=== PATIENT | female | born 1955 | race Caucasian/White ===

== ENCOUNTER → 2017-01-06 | Outpatient (CLI) | payer OTHER ==
[~2017-01-06] MED LIST: ALBUAER2 INH; ATEN50TA8 PO; ATOR-24 PO; BUPR-79 PO; CITA20TA9 PO; ENOX1INJ13 SQ; FLUT0.15 NAE; FRS/40 PO; GABA-113 PO; GLC/500 PO; GLIP-197 PO; LISI-729 PO; LORA-741 PO; METH4PAK4 PO; TIOTCAP INH; TRAM-10 PO; WARF5TAB90 PO; ZOLP5TAB PO; [UNRECOGNIZED DRUG - CODE] TOP
--- NOTE | 2017-01-07 06:17 | PAP/PSG TECHNICIAN REPORT ---
[facility] Broker Polysomnogram Report Study name: None Report date: 01/07/2017 Study date: 01/06/2017 Referring Physician: Key Smith Name: WANG PARK Interpreting Physician: Alex Sarah M.D. Date of : 1955 Broker: FEI Pelaez. Sex: Female Age: 61 StudyType: PSG Weight: 256 lbs 15.25 inches Height: 61 years, Height 5' 7" Neck Circum: BMI: 40.09 Medications: COUMADIN 5 MG, SPIRIVA RESPIMAT 1.25 MCG, LASIX 40 MG, CELEXA 20 MG, TENORMIN 50 MG, GLIPIZIDE XL 5 MG, LIPITOR 40 MG, GLUCOPHAGE 500 MG, VENTOLIN HFA 108 90 BASE, NEURONTIN 300 MG, PRINIVIL 5 MG, AMBIEN 5 MG, ATIVAN 0.5 MG, ULTRAM 50 MG, WELLBUTRIN XL 150 MG, FLONASE 50 MCG/ACT Patient History PATIENT HAS HISTORY OF INSOMNIA AND HYPERSOMNIA. ALSO HAS HISTORY OF LOUD SNORING, TAKING NAPS AND DAYTIME FATIGUE. SHE IS HERE FOR AN EVALUATION FOR ROSE MARIE. ESS = 10 RM 5 Parameters Monitored NPSG: E1-M2, E2-M1, Fp1-M2, Fp2-M1, F3-M2, F4-M2, F4-M1, C3-M2, C4-M2, C4-M1, O1-M2, O2-M2, O2-M1, T3-M2, T4-M1, P3-M2, P4-M1, CHIN1, CHIN2, HR, EKG, Legs, PFLOW, SNOR, FLOW, CFLOW, Tidal Volume, THOR, ABDO, SpO2, PLTH, CPRESS, ETCO2 Wave, ETCO2, pH Sleep Architecture Sleep Stages Time at Lights Off 10:45:42 PM STAGES Time (min.) TST (%) Time at Lights On 5:52:12 AM Wake 59.0 -- Total Recording Time (TRT) 427.00 min. N1 22.0 6 Total Sleep Period (TSP) 408.5 min. N2 300.0 82 Total Sleep Time (TST) 367.5min. N3 10.5 3 Awake Time 59.0 min. REM 35.0 10 Wake after Sleep Onset 41.0 min. Sleep Efficiency (SE) 86 % Sleep Onset Latency (CONNIE) 18.0 min. Number of Stage 1 Shifts None Awakenings 19 Stage Changes 77 Number of REM periods 2 REM 35.0 10 REM Latency 370.5 min. NREM 332.5 90 Body Position Analysis Supine Right Left Side Prone Vertical Total Sleep Time (min.) 253.9 75.9 55.7 131.64 0.0 0.0 Total Sleep Time (%) 64% 21% 15% 36 0% N/A% Total Sleep Time REM (min.) 35.0 0.0 0.0 None 0.0 0.0 Total Sleep Time NREM (min.) 200.9 75.9 55.7 None 0.0 0.0 Intermittent Wake (min.) 18.0 23.9 17.1 None 0.0 0.0 Total Sleep Period (%) 62% None None None None None Arousals Myoclonus (PLM) * Events Count Index Events Count Index Spontaneous 37 6 Events Awake (PLMW) 54 54.9 Respiratory 26 4.6 Events Asleep w/ Arousal (PLMA) 10 1.6 PLM 9 2 Events Asleep w/o Arousal (PLMS) 233 38.0 Snoring 23 4 Total Asleep 243 39.7 Total 95 16 Total 297 42 Respiratory Analysis * CA OA MA CH H RERA Total Count 1 4 0 0 205 0 210 Index 0.2 0.7 0.0 0 33.5 0 34.3 Mean Duration 23.4 23.0 0.0 0.00 20.5 0.0 20.6 Longest Duration 23.4 29.5 0.0 0.00 0.0 0.0 53.4 Respiratory Event Summary Total Supine ~Supine Right Left Prone REM NREM Apneas Count 5 5 0 0 0 N/A 0 5 Index 0.8 1 0 0.0 0.0 N/A 0 1 Hypopneas (4% Desat) Count 205 155 50 25 25 N/A 33 172 Index 33.5 39.4 23 19.8 26.9 N/A 56.6 31.0 Apneas & All Hypopneas Count 210 160 50 25 25 N/A 33 177 Index 34.3 41 23 20 27 N/A 56.6 31.9 Respiratory Events (Byproducts Extractor+All Hyp+RERA) Count 210 160 50 25 25 N/A 33 177 Index 34.3 41 23 19.8 26.9 N/A 56.6 31.9 Respiratory Related Arousal Count 26 160 8 3 5 N/A 1 27 Index 4.6 5 4 2 5 N/A 2 5 Snoring Analysis Supine Right Left Prone REM NREM Total Snore duration 62.4 min Snores count 1,234 541 751 N/A 288 2,238 2,526 Snore mean duration 1.5 Sec Snores index 314 428 809 N/A 493.7 403.8 412.4 TST with snoring (%) 17.0% Desaturation Event Summary: Minimum %SpO2 Event Count Mean/Min/Max Duration(sec.) Desaturation Index % Time In Bed > 90 168 26.8 / 6.0 / 60.0 84.2 28.5 86 - 90 113 24.4 / 9.3 / 51.6 26.8 60.2 81 - 85 9 19.2 / 9.0 / 42.3 11.6 11.1 76 - 80 0 N/A 0.0 0.2 71 - 75 0 N/A 0.0 0.0 66 - 70 0 N/A 0.0 0.0 61 - 65 0 N/A 0.0 0.0 56 - 60 0 N/A 0.0 0.0 51 - 55 0 N/A 0.0 0.0 < 50 0 N/A 0.0 0.0 Total REM NREM Awake <50% 0.0 min. 0.0 min. 0.0 min. 0.0 min. 51 - 60% 0.0 min. 0.0 min. 0.0 min. 0.0 min. 61 - 70% 0.0 min. 0.0 min. 0.0 min. 0.0 min. 71 - 80% 0.7 min. 0.7 min. 0.0 min. 0.0 min. 81 - 90% 299.1 min. 32.9 min. 248.4 min. 17.8 min. 91 - 100% 119.8 min. 1.4 min. 83.7 min. 34.6 min. Average 89 86 89 91 Minimum SpO2 77 77 83 83 Desaturation Event Index 32.6 61.7 32.7 15.3 # Desat. Events below 89% 179 36 138 5 Time(%) with Saturation below 89% 44.4 7.1 36.6 0.8 Time(min.) with Saturation below 89% 186.3 29.6 153.4 3.3 Time (mins) REM (mins) NREM (mins) % of TST SpO2 Below 90% 211 36 N175 65.0 SpO2 Below 88% 75 0 0 35 Heart Rate Analysis Min (bpm) Max (bpm) Average (bpm) Awake 62 76 70 NREM 61 196 67 REM 62 70 65 Overall 61 196 67 Supplemental O2 Values Minimum O2 level: None Value Start Time End Time Broker Comments Ms. Park slept in the right, left and supine positions. No cardiac arrhythmia noted. Leg movements noted. No bruxism noted. Snoring was noted and scored as a 4 on a scale of 1 through 5. (0=no snoring, 5=snoring loud enough to be heard through a closed door or down the souza way) Ms. Park awoke to use the restroom 1 time during the night. Ms. Park stated I did not sleep as well as I do when I am in my own bed. The final report will be interpreted and signed by a sleep physician. The completed physician report will then be placed in the patient medical record. Therapy (cm H2O) 0 TIB (min.) 426.5 TST (min.) 367.5 Sleep Onset (min.) 18.0 REM Onset From Sleep (min.) 370.5 Sleep Efficiency % 86 Wakefulness (%) 14 Wakefulness (min.) 59.0 NREM 1 (%) 6 NREM 1 (min.) 22.0 NREM 2 (%) 82 NREM 2 (min.) 300.0 NREM 3 (%) 3 NREM 3 (min.) 10.5 REM (%) 10 REM (min.) 35.0 # Arousals 95 Arousal Index 16 # Snore 2,526 Snore Index 412.4 AHI 34.3 AHI Supine 41 AHI Non-Supine 23 NREM AHI 31.9 REM AHI 56.6 RDI 34.3 # Obstructive Apnea 4 # Central Apnea 1 # Mixed Apnea 0 # Hypopneas 205 RERAs 0 Total Respiratory Events 210 Time Below SpO2 89% (min.) 183.0 Mean NREM SpO2 (%) 89 Mean REM SpO2 (%) 86 Mean Sleep SpO2 (%) 89 Min NREM SpO2 (%) 83 Min REM SpO2 (%) 77 Position Supine (min.) 253.9 Position Non-supine (min.) 131.6 LM Index Sleep 39.7 LM Index NREM 39.9 LM Index REM 37.7 Mean Heart Rate (bpm) 67 Min Heart Rate (bpm) 61
--- NOTE | 2017-01-08 16:31 | POLYSOMNOGRAPH REPORT ---
CLINICAL DATA: 61-year-old female with BMI of 40 referred by PAMELA Ward for a history of hypersomnia and insomnia with mild snoring, daytime fatigue and napping. Her Hutchinson sleepiness score is 10/24. SLEEP ARCHITECTURE: Total sleep period was 408.5 minutes. Total sleep time was 367.5 minutes divided between 332.5 minutes of non-REM sleep and 35 minutes of REM sleep. Sleep onset latency was 18 minutes. REM latency was 370.5 minutes. Sleep efficiency was 86%. Wake after sleep onset was 41 minutes. Sleep consisted of stage N1 6%, N2 82%, N3 3%, and REM 10%. AROUSAL DATA: 95 arousals recorded for an index of 16 per hour. PLM DATA: Moderately elevated limb movements during sleep were noted. There were 243 limb movements during sleep noted for an index of 39.7 per hour with arousal index of 1.6 per hour. RESPIRATORY DATA: Severe sleep apnea was documented. The AHI was 34.3. There was 1 central and 4 obstructive apneic episodes. The longest duration of apnea was 29.5 seconds. There were 205 hypopneic episodes with a mean duration of 20.5 seconds. OXIMETRY DATA: Nocturnal hypoxemia was seen. Oxygen gemma of 77% during REM. The mean saturation was 89%. Time below 88% was 75 minutes. EKG: Heart rates ranged from 61-70 beats per minute. No arrhythmias were noted. ENGINE EMISSION TECHNICIAN'S COMMENTS: The patient slept in the right, left, and supine positions. Snoring was severe, rated 4 on a scale of 1 through 5. She did not meet split night criteria early enough in the study to warrant a split night study. IMPRESSION: Severe sleep apnea/hypopnea with a diagnostic AHI of 34.3 with nocturnal hypoxemia. RECOMMENDATIONS: The patient would benefit from a repeat sleep study with CPAP or use of auto CPAP. DREW
== END | disposition home or self-care (01) ==
LOC: C.NEUR 21:00
PROVIDERS: ATTEND Nurse Practitioner Family
DX: G47.10 Hypersomnia, unspecified (principal); R06.83 Snoring; E66.01 Morbid (severe) obesity due to excess calories; G47.00 Insomnia, unspecified

== ENCOUNTER 2017-06-17 22:43 | Emergency (ER) | payer OTHER ==
[~2017-06-17] VITALS: Ht 167.6 cm; Wt 119.2 kg
[2017-06-17 22:46] VITALS: TEMP 36.8; Ht 167.6 cm; Wt 119.2 kg
[2017-06-17] MEDS ORDERED: PROPARACAINE HCL 0.5% OP SOLN 15 ML BTL OP STA (22:58)
[2017-06-17] MEDS ORDERED: HYDR-5688 PO (23:37)
[2017-06-17] MEDS ORDERED: CHN/1 PO (23:37)
[2017-06-17] MEDS ORDERED: RIVA1TAB4 PO (23:37)
[2017-06-17] MEDS ORDERED: BUPRTAB51 PO (23:37)
[2017-06-17] MEDS ORDERED: SPRIN/30 INH (23:37)
[2017-06-17] MEDS ORDERED: BUPR-79 PO (23:37)
[2017-06-17] MEDS ORDERED: LSN25 PO (23:37)
[2017-06-17] MEDS ORDERED: VNTHFA/IN INH (23:37)
[2017-06-17] MEDS ORDERED: FLV1 PO (23:37)
[2017-06-17] MEDS ORDERED: DOXYCYCLINE HYCLATE 100 MG CAP PO STA (23:53)
[2017-06-17] MEDS ORDERED: CEPHALEXIN 500MG HOME PACK 1 EA BTL PO STA (23:53)
[2017-06-18] MEDS ORDERED: CEPH500C PO (00:07)
[2017-06-18] MEDS ORDERED: DOXY-300 PO (00:07)
--- NOTE | 2017-06-18 00:08 | EMERGENCY ROOM VISIT NOTE ---
History First contact with patient: 22:50 Chief Complaint: EYE ASSESSMENT Stated Complaint: RT EYE SWELLING History of Present Illness The patient is a 61 year old female who presents to the Emergency Room via private vehicle with complaints of "right eye swelling". The patient states that 3 days ago she began with a small red bump on the upper right eyelid. This has now progressed in size. She was seen at another facility and given ciprofloxacin eyedrops to be used 4 times daily. She has been complying with this. She states that now the swelling has worsened and there is more redness throughout the entire upper eyelid and beginning on the lower eyelid. She denies any pain. She denies any pain with eye movements. She also has associated cold symptoms which she has had for the past few days to include chills, headache, and phlegm in her throat. Of additional note she states that the right eye lid redness began with a scratchy sensation in the eye as well. She only notes minimal discharge from the eye. Review of Systems A complete 6-point Review of Systems was discussed with the patient, with pertinent positives and negatives listed in the History of Present Illness. All remaining Review of Systems questions can be considered negative unless otherwise specified. Past Medical/Surgical History Medical Problems: (1) Diabetes (2) Hypertension (3) Pneumonia Surgical Problems: (1) S/P cholecystectomy Family History Diabetes mellitus Gallbladder disease Heart disease Hypertension Social History Smoking Status: Former Smoker Marital Status: single Housing Status: unknown Occupation Status: employed Current/Historical Medications Scheduled Atenolol (Tenormin), 50 MG PO DAILY Atorvastatin (Lipitor), 40 MG PO DAILY Bupropion (Wellbutrin Sr), 150 MG PO DAILY Bupropion (Wellbutrin Sr), 150 MG PO DAILY Bupropion (Wellbutrin-Xl), 300 MG PO DAILY Cephalexin Monohydrate (Keflex), 500 MG PO BID Citalopram Hydrobromide (Celexa), 20 MG PO DAILY Doxycycline (Monohydrate) (Doxycycline), 100 MG PO BID Folic Acid (Folic Acid), 1 MG PO DAILY Furosemide (Lasix), 40 MG PO DAILY Gabapentin (Neurontin), 300 MG PO TID Glipizide (Glipizide Er), 1 TAB PO DAILY Lisinopril (Lisinopril), 2.5 MG PO DAILY Metformin Hcl (Glucophage), 500 MG PO BID Rivaroxaban (Xarelto), 20 MG PO DAILY Scheduled PRN Albuterol Hfa (Ventolin Hfa), 2 PUFFS INH QID PRN for Shortness of Breath Clobetasol Propionate [place]li[place] (Clobetasol Propionate E), 1 APPLN TOP BID PRN for Fluticasone Propionate (Nasal) (Flonase Allergy Relief), 2 SPRAYS FAROOQ DAILY PRN for CONGESTION Hydrocodone/Acetaminophen 5MG/325MG ([place] 5MG/325MG), 1 TABLET PO Q8 PRN for Pain Lorazepam (Ativan), 0.5 MG PO BID PRN for Anxiety Tiotropium [place] (Spiriva Handihaler), 1 CAP INH DAILY PRN for Shortness of Breath Varenicline (Chantix), 1 MG PO DIRECTED PRN for SMOKING CESSATION Zolpidem Tartrate (Ambien), 5 MG PO HS PRN for Sleep Physical Exam Vital Signs Date Time Temp Pulse Resp B/P (MAP) Pulse Ox O2 Delivery O2 Flow Rate FiO2 06/18/17 00:25 78 16 126/84 94 06/17/17 22:46 36.8 95 18 200/92 94 Room Air Right Eye Acuity: 20/40 Left Eye Acuity: 20/20 Physical Exam VITAL SIGNS - Vital signs and nursing notes were reviewed. Afebrile. Hypertensive. This improved. GENERAL -61-year-old female appearing her stated age who is in no acute distress. Communicates well with provider and answers questions appropriately. SKIN -the entire right upper eyelid is erythematous, with slight edema. Only minimal discharge from the conjunctiva noted. Minimal erythema just below the right eyelid. HEAD - NC/AT. EYES - PERRL with EOMI bilaterally. Sclera anicteric. No pain with EOMs. Please refer to slit-lamp exam below. EARS - No deformities of external structures noted on gross examination bilaterally. NOSE - Midline and without cyanosis. No epistaxis or purulent drainage noted. MOUTH/OROPHARYNX - Without perioral cyanosis. Buccal mucosa pink and moist and without leukoplakia. Tongue midline with equal elevation of palate bilaterally. No tonsillar hypertrophy, erythema, or exudates noted. [] dentition noted. NECK - Neck with FROM. Supple to palpation. No lymphadenopathy noted. No nuchal rigidity. Slit Lamp Examination was performed of the right eye(s). Alcaine drops were applied to the affected eye(s) for proper anesthetization. The affected eye(s) were stained with Fluorescein stain to precipitate adequate visualization of any conjunctival/scleral excoriations or ulcers. The patient's face was comfortably rested on the chin guard of the slit lamp apparatus. The lights were dimmed and the affected eye(s) were thoroughly examined under microscopy using the blue light. No uptake was present in the eye. Additionally, the eye(s ) were examined under microscopy using the regular light. Close examination revealed no right eye abnormalities other than that of edema and erythema of the upper eyelid. Patient tolerated the procedure well and no complications were met. Medical Decision & Procedures Medications Administered Medications (Trade) Dose Ordered Sig/Yoana Route Start Time Stop Time Status Last Admin Dose Admin Cephalexin Monohydrate (Keflex 500MG Home Pack) 1 homepack NOW STAT PO 06/17/17 23:53 06/17/17 23:58 DC 06/18/17 00:25 1 HOMEPACK Doxycycline Hyclate (Vibramycin Cap) 100 mg ONE STAT PO 06/17/17 23:53 06/17/17 23:58 DC 06/18/17 00:25 100 MG Medical Decision Patient was seen and evaluated as above in room B10. Review was performed of nursing notes and vital signs. After obtaining a thorough history and physical examination it was evident she was likely experiencing worsening of a stye/ hordeolum. This is slightly palpable on exam however now the entire right upper eyelid and is now progressing below this. This clinically could be early periorbital cellulitis. I did discuss this with the attending physician and the decision was made to allow the patient to continue the eyedrops, but also initiate Keflex and Bactrim. Because of her underlying other medications I will change Bactrim to doxycycline so that way Keflex and doxycycline to cover any potential early cellulitis. Although cellulitis is less likely, and a stye is favored or even allergies given her past medical history believe that treating for potential infectious cause is warranted. She was found to be hypertensive upon initial examination, however this normalized. She is to call ophthalmology to schedule follow-up tomorrow. The patient was educated upon management, had questions answered prior to discharge, and was discharged home in good condition. Case was discussed with the attending physician. In the evaluation and treatment of this patient, the following differential diagnoses were considered: Corneal Abrasion, Conjunctivitis, Eye Contusion, Globe Injury, Orbital Floor Injury (Blowout Fracture), Corneal Ulcer, Keratitis , Herpes Zoster Opthalmic, Blepharitis, Orbital Cellulitis, Iritis, Scleritis/ Episcleritis, Uveitis, Temporal Arteritis, Subconjunctival Hemorrhage. Impression Primary Impression: Stye Departure Information Dispostion Home / Self-Care Condition GOOD Prescriptions Doxycycline (Monohydrate) (Doxycycline) 100 Mg Cap 100 MG PO BID for 9 Days, #18 TABS Prov: Tristen Alvarez PA-C 06/18/17 Cephalexin Monohydrate (Keflex) 500 Mg Cap 500 MG PO BID for 8 Days, #16 CAP Prov: Tristen Alvarez PA-C 06/18/17 Referrals Deepthi Mcgregor M.D. (PCP) Jas Celaya M.D. Patient Instructions [facility] Additional Instructions You have been treated in the Emergency Department for left eye swelling. I suspect this is likely a stye however a small developing cellulitis is possible and for that reason we will start you on doxycycline and Keflex. Keflex 1 tablet every 12 hours. Doxycycline 1 tablet every 12 hours. You have been prescribed Doxycycline to be taken as prescribed. This is an antibiotic. All antibiotics have the potential to cause diarrhea. Stop this medication and contact a medical provider if you were to develop any significant adverse side effects including: wheezing, shortness of breath, passing out, vomiting, or a diffuse rash. Always take antibiotics as directed and COMPLETE the ENTIRE course regardless of the improvement of your symptoms. Protect yourself with sunscreen while on this antibiotic as it increases your skin's sensitivity to the light and cause bad sunburns. In addition, you should be sure to take this pill after eating. Make sure the pill is completely swallowed as this medication can cause irritation to the lining of the esophagus. Do NOT drink milk or eat anything with large amounts of Calcium in them 1 hour prior to taking this medication as this will decrease the effectiveness of the medication. Please continue the eyedrops. Please call Dr. Celaya's office first thing tomorrow morning to schedule follow- up. Please state that you were in the emergency department and we request you be seen that same day. Return to the emergency department if you develop the following symptoms despite treatment course outlined above: blurry vision, loss of vision, fever, intractable pain, increased redness, swelling, or purulent discharge.
[2017-06-18 00:25] VITALS: BP 126/84; PULSE 78; O2SAT 94
== END 2017-06-18 00:26 | disposition home or self-care (01) ==
LOC: C.EDB 22:45
DX: H00.011 Hordeolum externum right upper eyelid (principal); E11.9 Type 2 diabetes mellitus without complications; I10 Essential (primary) hypertension; Z87.01 Personal history of pneumonia (recurrent); Z90.49 Acquired absence of other specified parts of digestive tract; Z83.3 Family history of diabetes mellitus; Z82.49 Family history of ischemic heart disease and other diseases of the circulatory system; Z87.891 Personal history of nicotine dependence; Z79.84 Long term (current) use of oral hypoglycemic drugs; Z79.01 Long term (current) use of anticoagulants; Z79.899 Other long term (current) drug therapy